=== PATIENT | male | born 1940 | race Caucasian/White ===

== ENCOUNTER 2023-01-23 14:18 | Emergency (ER) | payer MEDICARE ==
[~2023-01-23] VITALS: Ht 177 cm; Wt 99.7 kg
[~2023-01-23 14:18] MED LIST: ACHD5005 PO; AMLO10TA82 PO; AMLO5TAB2 PO; ASP325T PO; ATOR40TA70 PO; BENZ200C51 PO; BUDE10.22 IH; CEFD300C3 PO; CHLO500T4 PO; CLPD75T PO; CPR500T PO; CYAN250010 PO; DOCU-143 PO; E400C PO; ENAL10TA PO; FISH1CAP15 PO; FNST5T PO; GUAI600T PO; HYDR-91 PO; IPRA3AMP31 IH; ISOS30TA82 PO; LISI40TA9 PO; METH4TAB PO; METO-333 PO; METO50TA7; MONT-40 PO; MTP25TSR PO; MULT-608 PO; NAPR-915 PO; NITR0.4T12 SL; NITR0.4T39 SL; NITR100C3 PO; OMEG1CAP51 PO; OMG1KC PO; OXYC1TAB11 PO; OXYC1TAB16 PO; PRAV40TA PO; PRAV80TA2 PO; PRD20T PO; RANO10003 PO; RANO500T3 PO; TIZA-186 PO; TIZA4CAP PO; TMSL.4C PO; VITA1CAP59 PO; Vitamin B-6 PO; [UNRECOGNIZED DRUG - CODE] PO
--- NOTE | 2023-01-23 14:21 | ED Chest Pain ---
General Chief Complaint: Chest Pain Stated Complaint: CHEST PAINS History of Present Illness Date Seen by Provider: Jan 23, 2023 Time Seen by Provider: 14:20 Initial Comments 82-year-old male brought in with some chest discomfort. 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 Reports that as long as he is not doing any work or resting his improved. That is little bit worse with the movement and activity. Patient denies any nausea, vomiting, diaphoresis, shortness of breath or other systemic complaints. P atient went to primary care office and had a negative EKG and evaluation at that time was sent to the ER for further evaluation. Allergies and Home Medications Allergies Coded Allergies: No Known Drug Allergies (Unverified , 01/23/23) Patient Home Medication List Home Medication List Reviewed: Yes Review of Systems Review of Systems Constitutional: no symptoms reported EENTM: No Symptoms Reported Respiratory: Denies Cough, Denies Shortness of Air, Denies SOA at Rest Cardiovascular: See HPI, Chest Pain Gastrointestinal: No Symptoms Reported Genitourinary: No Symptoms Reported Musculoskeletal: no symptoms reported Skin: no symptoms reported Psychiatric/Neurological: No Symptoms Reported Physical Exam Vital Signs Vital Signs - First Documented 01/23/23 14:18 Temp 36.8 Pulse 83 Resp 18 B/P (MAP) 169/84 (112) Pulse Ox 95 O2 Delivery Room Air Capillary Refill : Height, Weight, BMI Height: '" Weight: lbs. oz. kg; BMI Method: General Appearance: No Apparent Distress, WD/WN Respiratory: Lungs Clear, Normal Breath Sounds, No Accessory Muscle Use Cardiovascular: Regular Rate, Rhythm, No Edema, No Gallop Gastrointestinal: Non Tender, Soft Neurologic/Psychiatric: Alert, Oriented x3, No Motor/Sensory Deficits, Normal Mood/Affect, electrophysiology nurse practitioner II-XII Norm as Tested Skin: Normal Color, Warm/Dry Progress/Results/Core Measures Results/Orders Lab Results Laboratory Tests Test 01/23/23 14:23 01/23/23 16:22 Range/Units White Blood Count 4.4 4.3-11.0 10^3/uL Red Blood Count 3.99 L 4.30-5.52 10^6/uL Hemoglobin 12.6 L 13.3-17.7 g/dL Hematocrit 37 L 40-54 % Mean Corpuscular Volume 92 80-99 fL Mean Corpuscular Hemoglobin 32 25-34 pg Mean Corpuscular Hemoglobin Concent 35 32-36 g/dL Red Cell Distribution Width 13.2 10.0-14.5 % Platelet Count 126 L 130-400 10^3/uL Mean Platelet Volume 11.6 9.0-12.2 fL Immature Granulocyte % (Auto) 0 % Neutrophils (%) (Auto) 62 42-75 % Lymphocytes (%) (Auto) 18 12-44 % Monocytes (%) (Auto) 12 0-12 % Eosinophils (%) (Auto) 7 0-10 % Basophils (%) (Auto) 1 0-10 % Neutrophils # (Auto) 2.7 1.8-7.8 10^3/uL Lymphocytes # (Auto) 0.8 L 1.0-4.0 10^3/uL Monocytes # (Auto) 0.5 0.0-1.0 10^3/uL Eosinophils # (Auto) 0.3 0.0-0.3 10^3/uL Basophils # (Auto) 0.1 0.0-0.1 10^3/uL Immature Granulocyte # (Auto) 0.0 0.0-0.1 10^3/uL Percent Immature Platelet Fraction 4.9 0.0-7.6 % Prothrombin Time 13.2 12.2-14.7 SEC INR Comment 1.0 0.8-1.4 Activated Partial Thromboplast Time 23 L 24-35 SEC Sodium Level 141 135-145 MMOL/L Potassium Level 4.2 3.6-5.0 MMOL/L Chloride Level 110 H 98-107 MMOL/L Carbon Dioxide Level 22 21-32 MMOL/L Anion Gap 9 5-14 MMOL/L Blood Urea Nitrogen 20 H 7-18 MG/DL Creatinine 0.82 0.60-1.30 MG/DL Estimat Glomerular Filtration Rate 88 BUN/Creatinine Ratio 24 Glucose Level 107 H 70-105 MG/DL Calcium Level 9.5 8.5-10.1 MG/DL Corrected Calcium 9.7 8.5-10.1 MG/DL Magnesium Level 2.1 1.6-2.4 MG/DL Total Bilirubin 0.4 0.1-1.0 MG/DL Aspartate Amino Transf (AST/SGOT) 20 5-34 U/L Alanine Aminotransferase (ALT/SGPT) 24 0-55 U/L Alkaline Phosphatase 61 40-136 U/L Myoglobin 47.1 10.0-92.0 NG/ML Troponin I < 0.028 < 0.028 <0.028 NG/ML Total Protein 6.3 L 6.4-8.2 GM/DL Albumin 3.8 3.2-4.5 GM/DL Smear Scan YES My Orders Orders - YOUNG,MADELYN L DO Cbc With Automated Diff (01/23/23 14:21) Magnesium (01/23/23 14:21) Chest 1 View, Ap/Pa Only (01/23/23 14:21) Ekg Tracing (01/23/23 14:21) Comprehensive Metabolic Panel (01/23/23 14:21) Myoglobin Serum (01/23/23 14:21) Protime With Inr (01/23/23 14:21) Partial Thromboplastin Time (01/23/23 14:21) Monitor-Rhythm Ecg Trace Only (01/23/23 14:21) Ed Iv/Invasive Line Start (01/23/23 14:21) Troponin I [place] (01/23/23 14:21) Troponin I [place] (01/23/23 16:14) Vital Signs/I&O 01/23/23 01/23/23 14:18 17:09 Temp 36.8 Pulse 83 56 Resp 18 17 B/P (MAP) 169/84 (112) 134/70 Pulse Ox 95 95 O2 Delivery Room Air Initial ECG Impression Date: Jan 23, 2023 Initial ECG Impression Time: 14:25 Initial ECG Rate: 67 Initial ECG Rhythm: Normal Sinus Initial ECG Intervals: Normal Initial ECG Impression: Normal Comment Patient's diagnostic studies were ordered reviewed and interpreted by me. Patient had 2 negative troponins, negative EKG with normal sinus rhythm, heart rate 67, [place] [address] changes or elevation. Patient's x-ray was ordered reviewed by me with an initial interpretation by me with final interpretation per radiology report. Patient with benign physical exam. Patient was pain free throughout his ER stay. Patient was off for observation with repeat troponin and possible stress test however he declined. Patient sees Dr. Henderson and will contact him next week about outpatient follow-up. Patient was stable and discharged home. Diagnostic Imaging Diagonstic Imaging: Xray Plain Films/CT/US/NM/MRI: chest Comments Date of Exam:01/23/23 CHEST 1 VIEW, AP/PA ONLY EXAMINATION: Chest radiograph, portable AP view. DATE: 01/23/2023 2:39 PM INDICATION: 82-year-old male, chest pain. COMPARISON: October 08, 2021. FINDINGS: Heart size and mediastinal contours are unchanged. There is no identified pneumothorax. There is no large pleural effusion. There is no identified focal airspace consolidation. There are technical limitations of the study relating to patient body habitus and difficulties with exposure. IMPRESSION: 1. No identified acute cardiopulmonary abnormality. Reviewed: Reviewed by Me, Reviewed/Discussed Departure Impression Primary Impression: Nonspecific chest pain Disposition: HOME, SELF-CARE Condition: Stable Departure-Patient Inst. Referrals: NO,LOCAL PHYSICIAN (PCP/Family) Primary Care Physician Patient Instructions: Chest Pain, Adult ED Add. Discharge Instructions: Please call Dr. Henderson's office next week to arrange for an outpatient follow-up. Please return to the ER if your pain becomes worse, more frequent or with any other concerns. All discharge instructions reviewed with patient and/or family. Voiced understanding. MADELYN YOUNG DO Jan 23, 2023 14:20
[2023-01-23 14:28] LABS: EOSINOPHILS # (AUTO) 0.3 10^3/uL (0.0-0.3); MEAN CORPUSCULAR VOLUME 92 fL (80-99)
[2023-01-23 14:30] LABS: BASOPHILS # (AUTO) 0.1 10^3/uL (0.0-0.1); BASOPHILS % (AUTO) 1 % (0-10); EOSINOPHILS % (AUTO) 7 % (0-10); HEMATOCRIT 37 % (40-54); HEMOGLOBIN 12.6 g/dL (13.3-17.7); LYMPHOCYTES # (AUTO) 0.8 10^3/uL (1.0-4.0); LYMPHOCYTES % (AUTO) 18 % (12-44); MEAN CORPUSCULAR HEMOGLOBIN 32 pg (25-34); MEAN CORPUSCULAR HGB CONC 35 g/dL (32-36); MEAN PLATELET VOLUME 11.6 fL (9.0-12.2); MONOCYTES # (AUTO) 0.5 10^3/uL (0.0-1.0); MONOCYTES % (AUTO) 12 % (0-12); NEUTROPHILS # (AUTO) 2.7 10^3/uL (1.8-7.8); NEUTROPHILS % (AUTO) 62 % (42-75); PLATELET COUNT 126 10^3/uL (130-400); WHITE BLOOD COUNT 4.4 10^3/uL (4.3-11.0)
[2023-01-23 14:40] LABS: ALBUMIN 3.8 GM/DL (3.2-4.5); POTASSIUM 4.2 MMOL/L (3.6-5.0)
[2023-01-23 14:41] LABS: CALCIUM 9.5 MG/DL (8.5-10.1); PROTHROMBIN TIME PATIENT 13.2 SEC (12.2-14.7)
[2023-01-23 14:42] LABS: SMEAR SCAN COMMENT YES; TOTAL PROTEIN 6.3 GM/DL (6.4-8.2)
[2023-01-23 14:44] LABS: BILIRUBIN,TOTAL 0.4 MG/DL (0.1-1.0)
[2023-01-23 14:46] LABS: CREATININE SERUM 0.82 MG/DL (0.60-1.30)
[2023-01-23 14:49] LABS: MAGNESIUM 2.1 MG/DL (1.6-2.4)
--- NOTE | 2023-01-23 14:58 | Diagnostic Imaging Report ---
EXAMINATION: Chest radiograph, portable AP view. DATE: 01/23/2023 2:39 PM INDICATION: 82-year-old male, chest pain. COMPARISON: October 08, 2021. FINDINGS: Heart size and mediastinal contours are unchanged. There is no identified pneumothorax. There is no large pleural effusion. There is no identified focal airspace consolidation. There are technical limitations of the study relating to patient body habitus and difficulties with exposure. IMPRESSION: 1. No identified acute cardiopulmonary abnormality. Dictated by: Dictated on workstation # [id number]
[2023-01-23 17:09] VITALS: BP 134/70
== END 2023-01-23 17:09 | disposition home or self-care (01) ==
LOC: EDUNIT# 14:18 → ER 14:20
DX: R07.89 Other chest pain (principal)
CPT/HCPCS: 36415; 71045; 80053; 83735; 83874; 84484; 85025; 85610; 85730; 93005; 93041

== ENCOUNTER → 2023-03-03 | Outpatient (CLI) | payer MEDICARE | LOC: CARD 10:23 | PROVIDERS: ATTEND Internal Medicine Cardiovascular Disease | DX: I11.9 Hypertensive heart disease without heart failure (principal) | CPT/HCPCS: 93306 ==

== ENCOUNTER → 2023-04-08 | Outpatient (CLI) | payer MEDICARE ==
[~2023-04-08] MED LIST changes: +CATHETER FLUSH 10 ML SYR IVP PRN; +REGADENOSON 0.4 MG/5 ML SYR (LEXISCAN) IV ONE
[2023-04-08 09:28] VITALS: BP 137/75
[2023-04-08 09:36] VITALS: BP 138/64
--- NOTE | 2023-04-08 13:09 | Cardiology Stress Test Report ---
Stress Test Report Date of Procedure/Referring: Date of Procedure: Apr 08, 2023 PCP Shirley Marcial DO Admitting Physician Admitting Physician: Attending Physician: Gissell Downs MD Indications: CP Baseline Heart Rate: 59 Baseline Blood Pressure: Blood Pressure Systolic: 138 Blood Pressure Diastolic: 64 Baseline Vitals Vital Signs Date Time Temp Pulse Resp B/P (MAP) Pulse Ox O2 Delivery O2 Flow Rate FiO2 04/08/23 09:28 55 137/75 (95) Baseline EKG: Baseline EKG: NSR Summary After explaining the procedure to the patient, he signed a consent and then brought to the stress nuclear laboratory. Patient received 0.4 mg Lexiscan for stress test, ECG, heart rate and blood pressure were monitored continuously. Resting and stress dose of radio tracer were injected, imaging was acquired and reviewed in short axis, horizontal long axis and vertical long axis views. TID: 1.16 SSS: 4 SDS: 2 EF: 60 1. Patient tolerated Lexiscan well 2. Diaphragmatic attenuation with fixed defect involving the basal to mid inf erior wall, mild reversible ischemia involving the mid to apical anterolateral wall. Normal left ventricular size, ejection fraction 60% Copy Copies To 1: SHIRLEY MARCIAL DO Copies To 2: [facility] [place] GISSELL DOWNS MD Apr 08, 2023 13:09
== END ==
LOC: CARD 07:54
PROVIDERS: ATTEND Internal Medicine Cardiovascular Disease
DX: I10 Essential (primary) hypertension (principal); I25.10 Atherosclerotic heart disease of native coronary artery without angina pectoris
CPT/HCPCS: 78452; 93017; A9502

== ENCOUNTER → 2023-04-17 | Day surgery (SDC) | payer MEDICARE ==
[2023-04-17] VITALS (12 sets, daily range): BP systolic 127–158; BP diastolic 67–119
[~2023-04-17] VITALS: Ht 177.8 cm; Wt 98.0 kg
[~2023-04-17] MED LIST changes: +ASPIRIN E.C. 81 MG (ECOTRIN) TAB PO SCH; -CATHETER FLUSH 10 ML SYR IVP PRN; +FURO20TA4 PO; +GUAI400T86 PO; +HEParin (CATH LAB) 2,000 ML IV ONE; +HEParin 1000 UNIT/ML (10ML VIAL) FOR BOLUS ONE; +LIDOCAINE 1% INJ 20 ML VIAL ONE; +MIDAZOLAM 5 MG/5 ML (VERSED) VIAL ONE; +NITRO DRIP 25000 MCG/D5W 250 ML IV ONE; +NS IV 1000 ML 1,000 ML IV SCH; +NS IV 1000 ML 1,000 ML ONE; +PATIENT MAY USE OWN MEDS, ALL PO SCH; +POTA-177 PO; -REGADENOSON 0.4 MG/5 ML SYR (LEXISCAN) IV ONE; +TICA90TA PO; +TICAGRELOR 90 MG TABLET (BRILINTA) PO SCH; +VERAPAMIL 5 MG/2 ML (CALAN) VIAL IV ONE; +fentaNYL INJ 100 MCG/2 ML AMP ONE
[2023-04-17 07:21] LABS: HEMATOCRIT 41 % (40-54); HEMOGLOBIN 13.5 g/dL (13.3-17.7); MEAN CORPUSCULAR HEMOGLOBIN 31 pg (25-34); MEAN CORPUSCULAR HGB CONC 33 g/dL (32-36); MEAN CORPUSCULAR VOLUME 94 fL (80-99); MEAN PLATELET VOLUME 11.4 fL (9.0-12.2); PLATELET COUNT 167 10^3/uL (130-400); WHITE BLOOD COUNT 5.1 10^3/uL (4.3-11.0)
[2023-04-17 07:32] LABS: PROTHROMBIN TIME PATIENT 13.3 SEC (12.2-14.7)
[2023-04-17 07:36] LABS: ALBUMIN 4.2 GM/DL (3.2-4.5); POTASSIUM 3.9 MMOL/L (3.6-5.0)
[2023-04-17 07:37] LABS: CALCIUM 9.4 MG/DL (8.5-10.1)
[2023-04-17 07:39] LABS: TOTAL PROTEIN 6.8 GM/DL (6.4-8.2)
[2023-04-17 07:40] LABS: BILIRUBIN,TOTAL 0.9 MG/DL (0.1-1.0)
[2023-04-17 07:42] LABS: CREATININE SERUM 0.86 MG/DL (0.60-1.30)
--- NOTE | 2023-04-17 08:09 | Diagnostic Imaging Report ---
INDICATION: Abnormal stress test. COMPARISON: 01/23/2023. FINDINGS: There are chronic pulmonary interstitial changes and there is stable flattening of the diaphragms. Heart size is stable. There are no current findings of edema or failure. There is no effusion. There is no evidence of airspace consolidation or pneumonia. There is no pneumothorax. IMPRESSION: Stable chest with stable pulmonary interstitial changes and mild hyperinflation with air trapping. No superimposed pneumonia or edema demonstrated. Dictated by: Dictated on workstation # [id number]
--- NOTE | 2023-04-17 10:36 | Coronary Angiography Report ---
Coronary Angiography Report DATE OF PROCEDURE: 04/17/23 INDICATION: Chest discomfort, shortness of breath, abnormal nuclear stress test PREOPERATIVE DIAGNOSIS: Chest discomfort, shortness of breath, abnormal nuclear stress test POSTOPERATIVE DIAGNOSIS: Severe two-vessel calcified coronary artery disease. HISTORY: This is a 82-year-old gentleman who had previous PCI to the obtuse marginal artery in 2008 with drug-eluting stent. He presented to Dr. Henderson's office with shortness of breath and mild chest discomfort. Abnormal nuclear stress test. Therefore, the patient was scheduled for coronary angiography. PROCEDURES PERFORMED: 1.Coronary angiography. 2.Left heart catheterization. 3. IFR to the LAD. COMPLICATIONS: None. SPECIMENS: None. ESTIMATED BLOOD LOSS: 10 mL ANESTHESIA: Conscious sedation ANTICOAGULATION: IV heparin CONTRAST: 113 ml FLUOROSCOPY: 9.1 minutes FLOUROSCOPY DOSE: 1119 mgy. PROCEDURE DETAILS: The patient is a 82 male and was brought to the catheterization laboratory technician after informed consent was taken. All the risks and complications were explained in detail; this included the risk of bleeding, vascular damage, stroke, [place] and even . The patient was draped and prepped in the usual sterile fashion. Access was gained in the right radial artery with a 6 American sheath. Coronary angiography and left heart catheterization was performed with the [place] catheter. FINDINGS: 1.Left main: Distal left main calcified disease. Stenosis severity 40%. 2.LAD: Calcified disease in the ostial/proximal LAD. Stenosis severity 80%. 3.Left circumflex artery: Patent stent in the OM artery. No other disease n oted. 4.RCA: Heavily calcified artery. Subtotal calcified occlusion in the mid RCA. Stenosis severity 99%. [id number] collaterals. 5.Left heart catheterization: Aortic pressure 119/60 mmHg. LV pressure 120/14 mmHg. LVEDP 18 mmHg. No gradient across the aortic valve Recommendations: IFR to the LAD is recommended. IFR details: EBU 3.5 guide catheter. iFR guidewire. Heparin 8000 international units. ACT 220 seconds. The lesion was crossed with a IFR. IFR reading was 0.84 which is severe. The wire was taken out. Post angiogram did not reveal any complication. Patient tolerated procedure well did not have any complication. CONCLUSIONS: Severe ostial LAD calcified stenosis. Severe subtotal calcified stenosis of the mid RCA. Patient is already on aspirin. We will start Brilinta. Patient will see MAYELA Rendon on Thursday morning to set up a referral with Dr. Mariano Diaz for consideration of high risk PCI versus CABG. This was discussed at length with the family. Amaya Lozano MD, FACP, FACC, [facility] Interventional Cardiology Caroline LOZANO MD Apr 17, 2023 10:36
--- NOTE | 2023-04-17 10:36 | Cardiac Procedure Note-CS/ASA ---
Pre-Procedure Note Pre-Op Procedure Note Date H&P Reviewed: Apr 17, 2023 Time H&P Reviewed: 09:10 History & Physical: H&P Reviewed, Patient Examed, No changes noted Pre-Operative Diagnosis: chest discomfort, abn nucl stress test Moderate Sedation PreProcedure Time 09:10 ASA Score 3 Airway Lungs Heart ASA score ASA 1: a normal healthy patient ASA 2: a patient with a mild systemic disease (mid diabetes, controlled hypertension, obesity ASA 3: a patient with a severe systemic disease that limits activity (angina, COPD, prior Myocardial infarction) ASA 4: a patient with an incapacitating disease that is a constant threat to life (CHF, renal failure) ASA 5: a moribund patient not expected to survive 24 hrs. (ruptured aneurysm) ASA 6: a declared brain- patient whose organs are being harvested. For emergent operations, add the letter E after the classification Mallampati Classification Grade 1 Sedation Plan Analgesia, Amnesia, Plan communicated to team members, Discussed options with patient/fam, Discussed risks with patient/fam The patient is an appropriate candidate to undergo the planned procedure, sedation, and anesthesia. The patient immediately re-assessed prior to indication. Caroline MCKINNEY MD Apr 17, 2023 10:36
--- NOTE | 2023-04-17 10:40 | Discharge Inst-Post CATH ---
Discharge Inst-CATH/EP Problems Reviewed?: Yes Final Diagnosis severe two vessel CAD Post Cardiac Cath/EP D/C Inst Follow Up/Plan Follow up with [facility]/Dr Henderson early next week. <b>CARDIAC CATH/EP PROCEDURE DISCHARGE INSTRUCTIONS</b> ACTIVITY * Go Home directly and rest. * Limit activity of the leg (or wrist if it was used) for 7 days including aerobics, swimming, jogging, bicycling, etc. * Restrict stair-climbing for 7 days if possible, if not, climb up with your non-cath leg, then bring together on the same step. * Avoid lifting, pushing, pulling or excessive movement of the affected extremity for 7 days. * Customary sexual activity may be resumed after 2 days-use caution not to use a position that strains or causes pain to the affected extremity. * No driving for 24 hours. * NO SMOKING. * Avoid straining for bowel movements for 7 days. * Gentle walking on level ground is allowed. * Returning to work will depend on the type of procedure and the results. Your doctor will discuss this with you. CALL YOUR DOCTOR FOR ANY OF THE FOLLOWING: *If bleeding from the puncture site occurs- Apply gentle pressure to site with clean cloth and call your doctor or EMS. * If a knot or lump forms under the skin, increases in size, or causes pain. * If bruising appears to be worsening or moving further down your leg instead of disappearing. * Temperature above 101 F. CARE OF YOUR GROIN INCISION; * Bruising or purple discoloration of the skin near the puncture site is common. * You may shower only, no bathtub bathing for 5 days. Be careful to avoid slipping as your leg may feel stiff. * If a closure device was used on your femoral artery, please see the attached guide regarding care of the device and your leg. * Leave dressing on FOR 24 hours. CARE OF YOUR WRIST INCISION; * Bruising or purple discoloration of the skin near the puncture site is common. * You may shower. * DO NOT submerge wrist. * Leave dressing on FOR 24 hours. Caroline MCKINNEY MD Apr 17, 2023 10:40
== END ==
LOC: CATH 06:48
PROVIDERS: ATTEND Internal Medicine Cardiovascular Disease
DX: I25.10 Atherosclerotic heart disease of native coronary artery without angina pectoris (principal); I10 Essential (primary) hypertension; I65.23 Occlusion and stenosis of bilateral carotid arteries; I73.9 Peripheral vascular disease, unspecified; I49.5 Sick sinus syndrome; R94.39 Abnormal result of other cardiovascular function study; R60.0 Localized edema; N40.0 Benign prostatic hyperplasia without lower urinary tract symptoms; M54.9 Dorsalgia, unspecified; E78.2 Mixed hyperlipidemia; Z79.82 Long term (current) use of aspirin; Z95.5 Presence of coronary angioplasty implant and graft
CPT/HCPCS: 71045; 80053; 80061; 85027; 85347; 85610; 85730; 87081; 93005; 93458; 93571; C1769 ×2; C1887; C1894; 36415

== ENCOUNTER 2023-09-20 13:44 | Observation (INO) | payer MEDICARE ==
[~2023-09-20] VITALS: Ht 177.8 cm; Wt 95.9 kg
[~2023-09-20 13:44] MED LIST changes: -ASPIRIN E.C. 81 MG (ECOTRIN) TAB PO SCH; -HEParin (CATH LAB) 2,000 ML IV ONE; -HEParin 1000 UNIT/ML (10ML VIAL) FOR BOLUS ONE; -LIDOCAINE 1% INJ 20 ML VIAL ONE; -MIDAZOLAM 5 MG/5 ML (VERSED) VIAL ONE; -NITRO DRIP 25000 MCG/D5W 250 ML IV ONE; -NS IV 1000 ML 1,000 ML IV SCH; -NS IV 1000 ML 1,000 ML ONE; -PATIENT MAY USE OWN MEDS, ALL PO SCH; -TICAGRELOR 90 MG TABLET (BRILINTA) PO SCH; -VERAPAMIL 5 MG/2 ML (CALAN) VIAL IV ONE; -fentaNYL INJ 100 MCG/2 ML AMP ONE
[2023-09-20 13:59] LABS: BASOPHILS # (AUTO) 0.1 10^3/uL (0.0-0.1); BASOPHILS % (AUTO) 1 % (0-10); EOSINOPHILS # (AUTO) 0.2 10^3/uL (0.0-0.3); EOSINOPHILS % (AUTO) 3 % (0-10); HEMATOCRIT 42 % (40-54); LYMPHOCYTES # (AUTO) 0.7 10^3/uL (1.0-4.0); LYMPHOCYTES % (AUTO) 9 % (12-44); MEAN CORPUSCULAR HEMOGLOBIN 31 pg (25-34); MEAN CORPUSCULAR HGB CONC 33 g/dL (32-36); MEAN CORPUSCULAR VOLUME 94 fL (80-99); MEAN PLATELET VOLUME 11.3 fL (9.0-12.2); MONOCYTES # (AUTO) 0.6 10^3/uL (0.0-1.0); MONOCYTES % (AUTO) 9 % (0-12); NEUTROPHILS # (AUTO) 5.9 10^3/uL (1.8-7.8); NEUTROPHILS % (AUTO) 78 % (42-75); PLATELET COUNT 176 10^3/uL (130-400); WHITE BLOOD COUNT 7.5 10^3/uL (4.3-11.0)
[2023-09-20] MEDS ORDERED: ASPIRIN 81 MG CHEWABLE TABLET PO ONE (14:00)
--- NOTE | 2023-09-20 14:00 | ED Cardiac General ---
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 Chest pain started 2 hours ago. Patient states he was fixing a door at the time. [place] this pressure across his chest. He states pain did intensify but did improve right before arrival. He had associated shortness of breath. Rates pain 8 out of 10. Was seen at [facility] was sent to the ED for further evaluation. Patient has a history of coronary artery disease, hypertension, dyslipidemia does report some lower leg swelling but no increased swelling at this time. He did have some shortness of breath at the time of the chest pain. He is currently asymptomatic. Does take aspirin daily. Denies any cough, runny nose, sore throat, headache, dizziness, visual changes. Similar type pain in the past. Was transferred to [facility] in March secondary to abnormal stress test. History of a drug-eluting stent. Patient denies of any fever, chills, bodies, abdominal pain. States he did feel nauseous when the chest pain did occur. [place] like he had to burp. Allergies and Home Medications Allergies Coded Allergies: No Known Drug Allergies (Unverified , 01/23/23) Patient Home Medication List Home Medication List Reviewed: Yes Amlodipine Besylate (Norvasc Tablet) 10 Mg Tablet, 10 MG PO DAILY, (Reported) Entered as Reported by: DEMAR KAUR on 03/17/13 0328 Atorvastatin Calcium (Atorvastatin Calcium) 40 Mg Tablet, 40 MG PO HS, (Reported) Entered as Reported by: LENA PRITCHETT on 05/01/22 1500 Budesonide/Formoterol Fumarate (Symbicort 80-4.5 Mcg Inhaler) 80 Mcg-4.5 Mcg/Actuation Hfa.aer.ad, 2 PUFF IH BID, (Reported) Entered as Reported by: LENA PRITCHETT on 05/01/22 1500 Docusate Sodium (Colace) 100 Mg Capsule, 100 MG PO DAILY, (Reported) Entered as Reported by: LENA PRITCHETT on 05/01/22 1500 Furosemide (Furosemide) 20 Mg Tablet, 20 MG PO DAILY PRN for EDEMA, (Reported) Entered as Reported by: UCHE RIZVI on 04/17/23 07 Guaifenesin (Guaifenesin) 400 Mg Tablet, 400 MG PO BID PRN for CONGESTION, (Reported) Entered as Reported by: UCHE RIZVI on 04/17/23 07 Ipratropium/Albuterol Sulfate (Iprat-Albut 0.5-3(2.5) mg/3 ml) 0.5 Mg-3 Mg (2.5 Mg Base)/3 Ml Ampul.neb, 3 ML IH Q4H PRN for SHORTNESS OF BREATH Prescribed by: Wendie Varner on 07/10/22 1457 Isosorbide Mononitrate (Isosorbide Mononitrate ER) 30 Mg Tab.er.24h, 30 MG PO DAILY, (Reported) Entered as Reported by: LENA PRITCHETT on 05/01/22 1500 Lisinopril (Lisinopril) 40 Mg Tablet, 40 MG PO DAILY, (Reported) Entered as Reported by: LENA PRITCHETT on 05/01/22 1500 Montelukast Sodium (Montelukast Sodium) 10 Mg Tablet, 10 MG PO DAILY, (Reported) Entered as Reported by: LENA PRITCHETT on 05/01/22 1500 Nitroglycerin (Nitroglycerin) 0.4 Mg Tab.subl, 0.4 MG SL UD PRN for CHEST PAIN Prescribed by: GISSELL HENDERSON on 07/03/17 1102 [place]-3/Dha/Epa/Fish Oil (Cvs Fish Oil 1,000 mg Softgel) 300 Mg-1,000 Mg Capsule, 1 EACH PO UD, (Reported) Entered as Reported by: LENA PRITCHETT on 05/01/22 1500 Potassium Chloride (Potassium Chloride) 10 Meq Tab.er.prt, 10 MEQ PO DAILY PRN for WITH FUROSEMIDE, (Reported) Entered as Reported by: UCHE RIZVI on 04/17/23 07 Ticagrelor (Brilinta) 90 Mg Tablet, 90 MG PO BID Prescribed by: Caroline MCKINNEY on 04/17/23 1039 Review of Systems Review of Systems Constitutional: No chills, No diaphoresis, No fever, No malaise, No weakness EENTM: No Double Vision, No Eye Pain Respiratory: Denies Cough, Denies Orthopnea; Shortness of Air Cardiovascular: Chest Pain; Denies Edema, Denies Irregular Heart Rate Gastrointestinal: Denies Abdominal Pain Genitourinary: Denies Burning, Denies Discharge, Denies Drainage, Denies Frequency Musculoskeletal: No back pain, No joint pain Skin: No change in color All Other Systems Reviewed Negative Unless Noted: Yes Past Vamunif-Gnizgc-Lwptai Hx Immunizations Up To Date Tetanus Booster (TDap): Unknown PED Vaccines UTD: Yes First/Initial COVID19 Vaccinat: RECEIVED UNK WHEN Second COVID19 Vaccination [place]: RECEIVED, UNK WHEN Third COVID19 Vaccination Date: RECEIVED UNK WHEN Seasonal Allergies Seasonal Allergies: No Past Medical History Surgery/Hospitalization HX: LUMBAR SPINE SURGERY L4-L5 FUSION WITH HARDWARE 09/30/[address] MARIELA GANDARA 4 STATES IN [place], STENTS Surgeries: Yes (inguinal hernia repair, prostate sx, stents) Abdominal, Cardiac, Coronary Stent, Orthopedic, Transurethral Resection Respiratory: Yes (MILD) Asthma Currently Using CPAP: No Currently Using BIPAP: No Cardiac: Yes (1 heart stent) Coronary Artery Disease, High Cholesterol, Hypertension Neurological: No Reproductive Disorders: No Sexually Transmitted Disease: No Genitourinary: Yes Benign Prostatic Hyperpl, Prostate Problems, Kidney Stones Gastrointestinal: No Musculoskeletal: Yes Degenerate Disk Disease, Arthritis, Chronic Back Pain Endocrine: No HEENT: Yes (GLASSES) Loss of Vision: Denies Hearing Impairment: Hard of Hearing Cancer: Yes Prostate What Type of Treatment Did You: Surgical Intervention Psychosocial: No Integumentary: No Blood Disorders: No Family Medical History Congenital disease 19 FATHER Diabetes mellitus 19 MOTHER Neoplasm 19 MOTHER (maybe colon cancer) G8 BROTHER (lung cancer) No Pertinent Family Hx Physical Exam Vital Signs Vital Signs - First Documented 09/20/23 13:47 Temp 36.8 Pulse 67 Resp 22 B/P (MAP) 173/101 (125) Pulse Ox 96 O2 Delivery Room Air Capillary Refill : Less Than 3 Seconds Height, Weight, BMI Height: 5'10.00" Weight: 201lbs. 0.0oz. 91.723756vn; 30.00 BMI Method:Stated General Appearance: No Apparent Distress, WD/WN HEENT: PERRL/EOMI, TMs Normal, Normal ENT Inspection, Pharynx Normal Neck: Full Range of Motion, Normal Inspection, Non Tender, Supple Respiratory: Chest Non Tender, Lungs Clear, Normal Breath Sounds, No Accessory Muscle Use, No Respiratory Distress Cardiovascular: Regular Rate, Rhythm, No Edema, No Gallop, No JVD Gastrointestinal: Normal Bowel Sounds, No Organomegaly, No Pulsatile Mass, Non Tender Extremity: Normal Capillary Refill, Normal Inspection, Non Tender Neurologic/Psychiatric: Alert, Oriented x3, No Motor/Sensory Deficits, Normal Mood/Affect, talent sourcer II-XII Norm as Tested Skin: Normal Color, Warm/Dry Progress/Results/Core Measures Results/Orders Lab Results Laboratory Tests Test 09/20/23 13:50 Range/Units White Blood Count 7.5 4.3-11.0 10^3/uL Red Blood Count 4.50 4.30-5.52 10^6/uL Hemoglobin 14.0 13.3-17.7 g/dL Hematocrit 42 40-54 % Mean Corpuscular Volume 94 80-99 fL Mean Corpuscular Hemoglobin 31 25-34 pg Mean Corpuscular Hemoglobin Concent 33 32-36 g/dL Red Cell Distribution Width 13.4 10.0-14.5 % Platelet Count 176 130-400 10^3/uL Mean Platelet Volume 11.3 9.0-12.2 fL Immature Granulocyte % (Auto) 0 % Neutrophils (%) (Auto) 78 H 42-75 % Lymphocytes (%) (Auto) 9 L 12-44 % Monocytes (%) (Auto) 9 0-12 % Eosinophils (%) (Auto) 3 0-10 % Basophils (%) (Auto) 1 0-10 % Neutrophils # (Auto) 5.9 1.8-7.8 10^3/uL Lymphocytes # (Auto) 0.7 L 1.0-4.0 10^3/uL Monocytes # (Auto) 0.6 0.0-1.0 10^3/uL Eosinophils # (Auto) 0.2 0.0-0.3 10^3/uL Basophils # (Auto) 0.1 0.0-0.1 10^3/uL Immature Granulocyte # (Auto) 0.0 0.0-0.1 10^3/uL Prothrombin Time 14.1 12.2-14.7 SEC INR Comment 1.1 0.8-1.4 Activated Partial Thromboplast Time 28 24-35 SEC Sodium Level 140 135-145 MMOL/L Potassium Level 4.1 3.6-5.0 MMOL/L Chloride Level 106 98-107 MMOL/L Carbon Dioxide Level 24 21-32 MMOL/L Anion Gap 10 5-14 MMOL/L Blood Urea Nitrogen 17 7-18 MG/DL Creatinine 0.87 0.60-1.30 MG/DL Estimat Glomerular Filtration Rate 86 BUN/Creatinine Ratio 20 Glucose Level 108 H 70-105 MG/DL Calcium Level 9.6 8.5-10.1 MG/DL Corrected Calcium 9.5 8.5-10.1 MG/DL Magnesium Level 2.2 1.6-2.4 MG/DL Total Bilirubin 0.8 0.1-1.0 MG/DL Aspartate Amino Transf (AST/SGOT) 23 5-34 U/L Alanine Aminotransferase (ALT/SGPT) 25 0-55 U/L Alkaline Phosphatase 86 40-136 U/L Myoglobin 42.0 10.0-92.0 NG/ML Troponin I < 0.028 <0.028 NG/ML B-Type Natriuretic Peptide 82.1 <100.0 PG/ML Total Protein 7.1 6.4-8.2 GM/DL Albumin 4.1 3.2-4.5 GM/DL Lipase 40 8-78 U/L My Orders Orders - KELLEE CRAIG PA Ekg Tracing (09/20/23 13:47) Cbc And Automated Diff (09/20/23 13:52) Magnesium (09/20/23 13:52) Chest 1 View, Ap/Pa Only (09/20/23 13:52) Ekg Tracing (09/20/23 13:52) Comprehensive Metabolic Panel (09/20/23 13:52) Myoglobin Serum (09/20/23 13:52) Protime With Inr (09/20/23 13:52) Partial Thromboplastin Time (09/20/23 13:52) O2 (09/20/23 13:52) Monitor-Rhythm Ecg Trace Only (09/20/23 13:52) Lipid Panel (09/21/23 06:00) Ed Iv/Invasive Line Start (09/20/23 13:52) Lipase (09/20/23 13:52) Bnp Cecille (09/20/23 13:52) Troponin I Cecille (09/20/23 13:52) Aspirin Chewable Tablet (Aspirin Chewabl (09/20/23 14:00) Medications Given in ED Current Medications Medications Dose Ordered Sig/Tramaine Route Start Time Stop Time Status Last Admin Dose Admin Aspirin 324 mg ONCE ONCE PO 09/20/23 14:00 09/20/23 14:01 DC 09/20/23 14:03 324 MG Clopidogrel Bisulfate 300 mg ONCE ONCE PO 09/20/23 16:00 09/20/23 16:03 DC 09/20/23 16:15 300 MG Vital Signs/I&O 09/20/23 13:47 Temp 36.8 Pulse 67 Resp 22 B/P (MAP) 173/101 (125) Pulse Ox 96 O2 Delivery Room Air Blood Pressure Mean: 125 Comment Sinus bradycardia, 54 bpm, QRS duration 89 MS, QTc 380 MS. Departure Communication (PCP) Patient is a 83-year-old male with extensive cardiac history presents to ED with episode of a chest pain. This occurred while at home 2 hours before arrival. Patient was putting up a door. Substernal pressure with shortness of breath and nausea at the time of the pain. Patient states he felt like he needed to belch. Patient states chest pain improved right before arrival. Patient was seen here in March had abnormal stress test underwent cardiac cath by Dr. Pond credit reporter who ended up sending patient to [facility] secondary to severe two-vessel coronary artery disease. Family at bedside states patient had a stent placed and refused undergoing bypass surgery at that time. Patient was admitted for a 3-day stay. Not currently on anticoagulants. Since then he has been doing quite well. Follows Dr. Henderson. Cardiac workup was initiated on arrival. Currently asymptomatic. Patient Was slightly hypertensive but did improve without any treatment. EKG showed sinus bradycardia with minimal ST depression at 54 bpm.. Patient did receive a full aspirin. CBC, CMP grossly unremarkable. Normal troponin and BNP. Chest x-ray was unremarkable. He is not tachycardic or hypoxic or febrile. Patient was discussed with Dr. Garcia Sleep Scientist here in the ED. Recommended going to the Case Reviewer at this time. Patient did receive Plavix. Patient is not wanting to undergo bypass at this time. Patient was discussed with Dr. Blanco hospitalist who agreed to accept p atient. Impression Primary Impression: Chest pain Disposition: ADMITTED INPATIENT Condition: Stable Admissions Decision to Admit Reason: Admit from ER (General) Decision to Admit/Date: Sep 20, 2023 Time/Decision to Admit Time: 16:36 Departure-Patient Inst. Referrals: SHIRLEY CRYSTAL DO (PCP/Family) Primary Care Physician KELLEE CRAIG Sep 20, 2023 14:00
[2023-09-20 14:06] LABS: ALBUMIN 4.1 GM/DL (3.2-4.5); CHLORIDE 106 MMOL/L (98-107); POTASSIUM 4.1 MMOL/L (3.6-5.0); SODIUM 140 MMOL/L (135-145)
[2023-09-20 14:08] LABS: CALCIUM 9.6 MG/DL (8.5-10.1); INR 1.1 (0.8-1.4); PROTHROMBIN TIME PATIENT 14.1 SEC (12.2-14.7)
[2023-09-20 14:09] LABS: GLUCOSE 108 MG/DL (70-105); TOTAL PROTEIN 7.1 GM/DL (6.4-8.2)
[2023-09-20 14:10] LABS: BILIRUBIN,TOTAL 0.8 MG/DL (0.1-1.0); CARBON DIOXIDE 24 MMOL/L (21-32)
[2023-09-20 14:12] LABS: ALKALINE PHOSPHATASE 86 U/L (40-136); CREATININE SERUM 0.87 MG/DL (0.60-1.30); GFR ESTIMATED 86
[2023-09-20 14:13] LABS: BUN/CREATININE RATIO 20
[2023-09-20 14:15] LABS: ALANINE AMINOTRANSFERASE 25 U/L (0-55); MAGNESIUM 2.2 MG/DL (1.6-2.4)
[2023-09-20 14:16] LABS: LIPASE 40 U/L (8-78)
--- NOTE | 2023-09-20 14:20 | Diagnostic Imaging Report ---
EXAM: CHEST 1 VIEW, AP/PA ONLY INDICATION: Chest pain. COMPARISON: 04/17/2023. FINDINGS: Normal heart size and central pulmonary vascularity. Lungs are clear. No pleural effusion or pneumothorax. No acute osseous findings. No significant change. IMPRESSION: No acute cardiopulmonary findings. Dictated by: Dictated on workstation # [id number]
[2023-09-20] MEDS ORDERED: CLOPIDOGREL 300 MG TABLET PO ONE (16:00)
[2023-09-20] MEDS ORDERED: fentaNYL INJECTION 100 MCG/2 ML VIAL ONE (16:31)
[2023-09-20] MEDS ORDERED: HEParin 1000 UNIT/ML (10ML VIAL) FOR BOLUS ONE (16:31)
[2023-09-20] MEDS ORDERED: MIDAZOLAM INJ 5 MG/5 ML VIAL ONE (16:31)
[2023-09-20] MEDS ORDERED: LIDOCAINE 1% INJ 20 ML VIAL ONE ×2 (16:31→17:33)
[2023-09-20] MEDS ORDERED: NITRO DRIP 25000 MCG/D5W 250 ML IV ONE (16:32)
[2023-09-20] MEDS ORDERED: NS IV 1000 ML 1,000 ML ONE (16:32)
[2023-09-20] MEDS ORDERED: HEParin (CATH LAB) 2,000 ML IV ONE (16:32)
[2023-09-20] MEDS ORDERED: VERAPAMIL 5 MG/2 ML (CALAN) VIAL IV ONE (16:39)
[2023-09-20 18:35] VITALS: BP 149/78
[2023-09-20] MEDS ORDERED: NS IV 500 ML 500 ML IV PRN (21:00)
[2023-09-20] MEDS: NS IV 1000 ML 1,000 ML IV SCH (21:38)
[2023-09-20 23:31] VITALS: BP 150/75
[2023-09-21 03:13] VITALS: BP 119/70
--- NOTE | 2023-09-21 04:59 | Short Stay Summary-Hospitalist ---
History of Present Illness HPI/Chief Complaint Chief complaint: Unstable angina HPI: This is an 83-year-old male CHC who presented following cardiac catheterization performed by cardiology revealing multivessel disease. Patient was reluctant but agreed to go to [place] for bypass surgery. Source: patient, family Exam Limitations: no limitations Date Seen 09/21/23 Time Seen by a Provider: 09:00 Attending Physician Christopher Marcial DO PCP Admitting Physician: Dilam Blanco DO Attending Physician: Michael Sanchez MD Referring Physician Date of Admission Sep 20, 2023 at 18:38 Home Medications & Allergies Home Medications Reviewed patient Home Medication Reconciliation performed by pharmacy medication reconciliations field installation technician and/or nursing. Patients Allergies have been reviewed. Allergies Allergies Coded Allergies No Known Drug Allergies (Unverified01/23/23) Past Uigxpsh-Drrazz-Iahehh Hx Patient Social History Marrital Status: Employed/Student: retired Tobacco Use?: No Smoking Status: Never a Smoker Use of E-Cig and/or Vaping dev: No Substance use?: No Alcohol Use?: No Pt feels they are or have been: No Immunizations Up To Date Date of Influenza Vaccine: Jul 26, 2021 First/Initial COVID19 Vaccinat: RECEIVED UNK WHEN Second COVID19 Vaccination [place]: RECEIVED, UNK WHEN Tetanus Booster (TDap): Less Than 5 Years PED Vaccines UTD: Yes Date of Pneumonia Vaccine: Oct 26, 2007 Seasonal Allergies Seasonal Allergies: No Current Status Advance Directives: Yes Advance Directive Location: Home Communicates: Verbally Primary Language: Guinean Preferred Spoken Language: Guinean Is interpretation needed?: No Sensory deficits: Vision impairment, Hearing impairment Implanted or Applied Medical D: Orthopedic hardware, Stents Past Medical History Surgeries: Abdominal, Cardiac, Coronary Stent, Orthopedic, Transurethral Resection Asthma Currently Using CPAP: No Currently Using BIPAP: No Coronary Artery Disease, High Cholesterol, Hypertension Sexually Transmitted Disease: No Benign Prostatic Hyperpl, Prostate Problems, Kidney Stones Degenerate Disk Disease, Arthritis, Chronic Back Pain Loss of Vision: Denies Hearing Impairment: Hard of Hearing Prostate What Type of Treatment Did You: Surgical Intervention Blood Disorders: No CAD HTN Dyslipidemia Family Medical History Congenital disease 19 FATHER Diabetes mellitus 19 MOTHER Neoplasm 19 MOTHER (maybe colon cancer) G8 BROTHER (lung cancer) No Pertinent Family Hx Review of Systems Constitutional: see HPI Cardiovascular: chest pain Physical Exam Physical Exam Vital Signs Vital Signs - First Documented 09/20/23 13:47 Temp 36.8 Pulse 67 Resp 22 B/P (MAP) 173/101 (125) Pulse Ox 96 O2 Delivery Room Air Capillary Refill : Less Than 3 Seconds Height, Weight, BMI Height: 5'10.00" Weight: 201lbs. 0.0oz. 91.045825xk; 29.19 BMI Method:Stated General Appearance: No Apparent Distress, WD/WN, Chronically ill HEENT: PERRL/EOMI, TMs Normal, Normal ENT Inspection, Pharynx Normal Neck: Full Range of Motion, Normal Inspection, Non Tender, Supple Respiratory: Chest Non Tender, Lungs Clear, Normal Breath Sounds, No Accessory Muscle Use, No Respiratory Distress Cardiovascular: Regular Rate, Rhythm, No Edema, No Gallop, No JVD Gastrointestinal: Normal Bowel Sounds, No Organomegaly, No Pulsatile Mass, Non Tender Extremity: Normal Capillary Refill, Normal Inspection, Non Tender Neurologic/Psychiatric: Alert, Oriented x3, No Motor/Sensory Deficits, Normal Mood/Affect, regulator tester II-XII Norm as Tested Skin: Normal Color, Warm/Dry Results Results/Procedures Labs Laboratory Tests 09/20/23 13:50 09/21/23 04:25 Patient resulted labs reviewed. Short Stay Diagnosis Discharge Diagnosis-Short Stay Admission Diagnosis Unstable angina with multivessel disease Final Discharge Diagnosis Unstable angina with multivessel disease needing bypass surgery Conclusion Plan Transfer to [place] Clinical Quality Measures AMI/AHF: ASA po Prior to arrival: Yes DILMA BLANCO DO Sep 21, 2023 04:59
[2023-09-21 05:01] LABS: BASOPHILS % (AUTO) 1 % (0-10); EOSINOPHILS # (AUTO) 0.1 10^3/uL (0.0-0.3); EOSINOPHILS % (AUTO) 3 % (0-10); HEMATOCRIT 38 % (40-54); HEMOGLOBIN 12.7 g/dL (13.3-17.7); LYMPHOCYTES # (AUTO) 0.6 10^3/uL (1.0-4.0); LYMPHOCYTES % (AUTO) 13 % (12-44); MEAN CORPUSCULAR HEMOGLOBIN 31 pg (25-34); MEAN CORPUSCULAR HGB CONC 34 g/dL (32-36); MEAN CORPUSCULAR VOLUME 91 fL (80-99); MEAN PLATELET VOLUME 11.5 fL (9.0-12.2); MONOCYTES # (AUTO) 0.5 10^3/uL (0.0-1.0); MONOCYTES % (AUTO) 11 % (0-12); NEUTROPHILS # (AUTO) 3.6 10^3/uL (1.8-7.8); NEUTROPHILS % (AUTO) 73 % (42-75); PLATELET COUNT 150 10^3/uL (130-400); WHITE BLOOD COUNT 4.9 10^3/uL (4.3-11.0)
[2023-09-21 05:36] LABS: CALCIUM 8.7 MG/DL (8.5-10.1); CREATININE SERUM 0.74 MG/DL (0.60-1.30); POTASSIUM 3.9 MMOL/L (3.6-5.0)
[2023-09-21] MEDS ORDERED: POTASSIUM CHLORIDE 20 MEQ TABLET PO SCH (06:00)
[2023-09-21] MEDS ORDERED: MAGNESIUM 1 GM/100 ML IVPB 100 ML IV SCH (06:00)
[2023-09-21] MEDS ORDERED: POTASSIUM CL 10MEQ/50ML IVPB 50 ML IV SCH (06:00)
[2023-09-21 08:00] VITALS: BP 156/72
[2023-09-21] MEDS ORDERED: POTASSIUM CHLORIDE 20 MEQ TABLET PO ONE (08:00)
[2023-09-21] MEDS: NS IV 1000 ML 1,000 ML IV SCH (08:15)
--- NOTE | 2023-09-21 08:16 | Cardiac Cath Report ---
Cardiac Cath Report Physician (s)/Transit Police Officer (s) Physician LILIAN MUHAMMAD MD Transit Police Officer (s) labview programmer nursing staff Pre-Procedure Diagnosis Pre-Procedure Diagnosis: chest discomfort, abn nucl stress test, CAD , unstable angina Post-Procedure Note Procedure Start Date: Sep 20, 2023 Procedure Start Time: 06:45 Name of Procedure: Selecetive Coronary Angiography without LV gram Findings/Procedure Note patient was prepped in sterile fashion and initially femoral access was obtained in left common femoral artery , upon anatomic review of left HYDROLOGIC ENGINEER noted tortuous calcified so femoral access was exchange for right radial access. Local anesthetic was placed and with a fine gauge needle right radial access obtained. Patient had received conscious sedation with versed and fentanyl . 6F radial sheath was placed followed by J wire placement into the ascending aorta and followed by a JL 4 and JR4 diagnostic catheter visualization of coronary anatomy. Coronary angiography revealed in summary : Left main with significant calcified plaque in distal portion with about 50% stenosis Left anterior descending artery : with proximal 80% chronic calcific stenosis but with EMELI 3 flow Left Circumflex: ostial severe stenosis 85% discrete but heavily calcified from dLM plaque extending into ostial LCx, mLCx/dLCx prior stent patent Right coronary artery: prior pRCA stent patent , mRCA focal heavily calcified stenosis with sub total chronic occlusion and minimal L-R collaterals Post angiography 6F sheath was removed from right radial artery and TR band placed with successfull hemostasis Total contrast used 64 CC Procedure was tolerated well Anesthesia Type: Conscious Sedation Estimated blood loss (mL): 0 Contrast Amount: 64 Post-Procedure Diagnosis Post-operative diagnosis: 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
--- NOTE | 2023-09-21 08:22 | Consultation-Cardiology ---
HPI-Cardiology Cardiology Consultation: Date of Consultation 09/21/23 Date of Admission 09/20 Attending Physician Christopher Marcial DO Admitting Physician Admitting Physician: Dilma Blanco DO Attending Physician: Michael Sanchez MD Consulting Physician MICHAEL SANCHEZ MD HPI: Time Seen by a Provider: 07:00 Chief Complaint: chest pain 83 yo male with prior history of CAD with prior PCI 2008 and 2022 , PVD here due to worsening chest pressure for past couple of months with severe chest pain yesterday with minimal exertion . He was noted back in March 2023 with severe CAD and was advised to undergo either complex impella assisted pci vs CABG but at the time patient was reluctant to undergo open heart surgery so issue was left alone and patient was taking his medications with the exception of brillinta . Given his progressive symptoms and lack of DAPT compliance with recent PCI to LAD patient and care team consulted cardiology to consider re eval for PCI stage d if possible vs patient otherwise would agree for CABG if not PCI feasible disease. Stable in ED upon arrival , was loaded with plavix 300 mg and taken to the manufacturing lab technician for evaluation where was found with severe 3VD with dLM involvement and admited overnight for observation and transfer this am to [facility] for CABG evaluation. Review of Systems-Cardiology Review of Systems Respiratory: shortness of breath, SOB with excertion, SOB at rest Cardiovascular: chest pain, lightheadedness, palpitations All Other Systems Reviewed Negative Unless Noted: Yes ENX-[id number]-Radoxd Hx Patient Social History Smoking Status: Never a Smoker 2nd Hand Smoke Exposure: No Alcohol Use?: No Pt feels they are or have been: No Immunizations Up To Date Tetanus Booster (TDap): Unknown Date of Pneumonia Vaccine: Oct 26, 2007 Date of Influenza Vaccine: Jul 26, 2021 Past Medical History PMH As described under Assessment. Family Medical History Family History: Congenital disease 19 FATHER Diabetes mellitus 19 MOTHER Neoplasm 19 MOTHER (maybe colon cancer) G8 BROTHER (lung cancer) Allergies and Home Medications Allergies Coded Allergies: No Known Drug Allergies (Unverified , 01/23/23) Patient Home Medication List Home Medication List Reviewed: Yes Amlodipine Besylate (Norvasc Tablet) 10 Mg Tablet, 10 MG PO DAILY, (Reported) Entered as Reported by: DEMAR KAUR on 03/17/13 0328 Atorvastatin Calcium (Atorvastatin Calcium) 40 Mg Tablet, 40 MG PO HS, (Reported) Entered as Reported by: LENA PRITCHETT on 05/01/221499 Budesonide/Formoterol Fumarate (Symbicort 80-4.5 Mcg Inhaler) 80 Mcg-4.5 Mcg/Act uation Hfa.aer.ad, 2 PUFF IH BID, (Reported) Entered as Reported by: LENA PRITCHETT on 05/01/221499 Docusate Sodium (Colace) 100 Mg Capsule, 100 MG PO DAILY, (Reported) Entered as Reported by: LENA PRITCHETT on 05/01/221499 Furosemide (Furosemide) 20 Mg Tablet, 20 MG PO DAILY PRN for EDEMA, (Reported) Entered as Reported by: UCHE RIZVI on 04/17/23722 Guaifenesin (Guaifenesin) 400 Mg Tablet, 400 MG PO BID PRN for CONGESTION, (Reported) Entered as Reported by: UCHE RIZVI on 04/17/23722 Ipratropium/Albuterol Sulfate (Iprat-Albut 0.5-3(2.5) mg/3 ml) 0.5 Mg-3 Mg (2.5 Mg Base)/3 Ml Ampul.neb, 3 ML IH Q4H PRN for SHORTNESS OF BREATH Prescribed by: Wendie Varner on 07/10/22 1457 Isosorbide Mononitrate (Isosorbide Mononitrate ER) 30 Mg Tab.er.24h, 30 MG PO DAILY, (Reported) Entered as Reported by: LENA PRITCHETT on 05/01/221499 Lisinopril (Lisinopril) 40 Mg Tablet, 40 MG PO DAILY, (Reported) Entered as Reported by: LENA PRITCHETT on 05/01/221499 Montelukast Sodium (Montelukast Sodium) 10 Mg Tablet, 10 MG PO DAILY, (Reported) Entered as Reported by: LENA PRITCHETT on 05/01/221499 Nitroglycerin (Nitroglycerin) 0.4 Mg Tab.subl, 0.4 MG SL UD PRN for CHEST PAIN Prescribed by: GISSELL DOWNS on 07/03/17 1102 [place]-3/Dha/Epa/Fish Oil (Cvs Fish Oil 1,000 mg Softgel) 300 Mg-1,000 Mg Capsule, 1 EACH PO UD, (Reported) Entered as Reported by: LENA PRITCHETT on 05/01/22 1500 Potassium Chloride (Potassium Chloride) 10 Meq Tab.er.prt, 10 MEQ PO DAILY PRN for WITH FUROSEMIDE, (Reported) Entered as Reported by: UCHE RIZVI on 04/17/23 0723 Ticagrelor (Brilinta) 90 Mg Tablet, 90 MG PO BID Prescribed by: Caroline MCKINNEY on 04/17/23 1039 Exam Vital Signs Vital Signs Date Time Temp Pulse Resp B/P (MAP) Pulse Ox O2 Delivery O2 Flow Rate FiO2 09/21/23 03:13 36.5 53 16 119/70 (86) 94 Room Air Physical Exam normocefalic atraumatic neck supple , -ve JVD Good air entry lungs No sig murmurs, rubs, gallops appreciated on cardiac auscultation abdomen soft non tender peripheral pulses decreased but present bilaterally Labs Laboratory Tests Test 09/20/23 13:50 09/21/23 04:25 Range/Units White Blood Count 7.5 4.9 4.3-11.0 10^3/uL Red Blood Count 4.50 4.14 L 4.30-5.52 10^6/uL Hemoglobin 14.0 12.7 L 13.3-17.7 g/dL Hematocrit 42 38 L 40-54 % Mean Corpuscular Volume 94 91 80-99 fL Mean Corpuscular Hemoglobin 31 31 25-34 pg Mean Corpuscular Hemoglobin Concent 33 34 32-36 g/dL Red Cell Distribution Width 13.4 13.4 10.0-14.5 % Platelet Count 176 150 130-400 10^3/uL Mean Platelet Volume 11.3 11.5 9.0-12.2 fL Immature Granulocyte % (Auto) 0 0 % Neutrophils (%) (Auto) 78 H 73 42-75 % Lymphocytes (%) (Auto) 9 L 13 12-44 % Monocytes (%) (Auto) 9 11 0-12 % Eosinophils (%) (Auto) 3 3 0-10 % Basophils (%) (Auto) 1 1 0-10 % Neutrophils # (Auto) 5.9 3.6 1.8-7.8 10^3/uL Lymphocytes # (Auto) 0.7 L 0.6 L 1.0-4.0 10^3/uL Monocytes # (Auto) 0.6 0.5 0.0-1.0 10^3/uL Eosinophils # (Auto) 0.2 0.1 0.0-0.3 10^3/uL Basophils # (Auto) 0.1 0.0 0.0-0.1 10^3/uL Immature Granulocyte # (Auto) 0.0 0.0 0.0-0.1 10^3/uL Prothrombin Time 14.1 12.2-14.7 SEC INR Comment 1.1 0.8-1.4 Activated Partial Thromboplast Time 28 24-35 SEC Sodium Level 140 140 135-145 MMOL/L Potassium Level 4.1 3.9 3.6-5.0 MMOL/L Chloride Level 106 111 H 98-107 MMOL/L Carbon Dioxide Level 24 20 L 21-32 MMOL/L Anion Gap 10 9 5-14 MMOL/L Blood Urea Nitrogen 17 14 7-18 MG/DL Creatinine 0.87 0.74 0.60-1.30 MG/DL Estimat Glomerular Filtration Rate 86 90 BUN/Creatinine Ratio 20 19 Glucose Level 108 H 103 70-105 MG/DL Calcium Level 9.6 8.7 8.5-10.1 MG/DL Corrected Calcium 9.5 8.5-10.1 MG/DL Magnesium Level 2.2 2.0 1.6-2.4 MG/DL Total Bilirubin 0.8 0.1-1.0 MG/DL Aspartate Amino Transf (AST/SGOT) 23 5-34 U/L Alanine Aminotransferase (ALT/SGPT) 25 0-55 U/L Alkaline Phosphatase 86 40-136 U/L Myoglobin 42.0 10.0-92.0 NG/ML Troponin I < 0.028 <0.028 NG/ML B-Type Natriuretic Peptide 82.1 <100.0 PG/ML Total Protein 7.1 6.4-8.2 GM/DL Albumin 4.1 3.2-4.5 GM/DL Lipase 40 8-78 U/L Phosphorus Level 3.0 2.3-4.7 MG/DL Triglycerides Level 71 <150 MG/DL Cholesterol Level 131 < 200 MG/DL LDL Cholesterol Direct 68 1-129 MG/DL VLDL Cholesterol 14 5-40 MG/DL HDL Cholesterol 49 40-60 MG/DL Radiology reviewed ECG Impression ECG Initial ECG Impression Date: Sep 21, 2023 Initial ECG Rhythm: Normal Sinus Initial ECG Impression: Normal, Nonspecific Changes Initial ECG Comparisson: Unchanged Diagnosis/Problems Diagnosis/Problems (1) CAD (coronary artery disease) (2) Angina pectoris, unstable (3) Abnormal stress test A/P-Cardiology Assessment/Admission Diagnosis Unstable angina class III-IV 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 Continue home meds Right radial access from yesterday benign , distal pulses intact. Cath revealed severe triple vessel CAD with LM involvement . Carotid angiography without proximal/ostial sig stenosis noted Plan to transfer for CABG evaluation today and optimize medical rx for CAD and CAD risk factors MICHAEL SANCHEZ MD Sep 21, 2023 08:22
[2023-09-21] MEDS ORDERED: CLOP75TA28 PO (10:13)
[2023-09-21] MEDS ORDERED: CALC600T91 PO (10:13)
[2023-09-21] MEDS ORDERED: LISI10TA25 PO (10:13)
[2023-09-21] MEDS ORDERED: MV-M1TAB2 PO (10:13)
[2023-09-21] MEDS ORDERED: VITA-212 PO (10:13)
[2023-09-21] MEDS ORDERED: CHOL10004 PO (10:13)
[2023-09-21] MEDS ORDERED: GUAI200T4 PO (10:13)
[2023-09-21] MEDS ORDERED: LEUP22.53 IM (10:13)
[2023-09-21] MEDS ORDERED: CYAN-23 PO (10:13)
[2023-09-21] MEDS ORDERED: ASPI-1238 PO (10:15)
--- NOTE | 2023-09-21 10:23 | Cardiology Discharge Summary ---
Discharge Summary Hospital Course Problems Reviewed?: Yes Hospital Course Date of Admission: Sep 20, 2023 at 18:38 Admission Diagnosis : Family Physician/Provider: Christopher Marcial DO Date of Discharge: 09/21/23 Discharge Diagnosis: Chest pain CAD HTN HLP Hospital Course: [ Chest pain, resembling unstable angina Coronary artery disease, History of PTCA and stent done in 2008 using Promus 3.0x18 mm to the obtuse marginal. Cardiac catheterization was done July 02, 2017 revealing patent stent in the first obtuse marginal branch, small vessel disease in the distal circumflex artery, nonobstructive disease. 40-50 percent stenosis in the mid RCA, nonobstructive disease. Torturous LAD with mild nonobstructive disease. Stress test done in March 2023 showing diaphragmatic attenuation with fixed defect at the basal to mid inferior wall with mild reversible ischemia involving the mid to apical anterior lateral wall with ejection fraction 60% Underwent LHC with Dr. Lozano on 04/17/23 Was transferred to [place] and underwent LHC on 04/19/23 with stenting to RCA. LAD and Cx diseaes by DFR did not suggest severe disease. Cardiac catheterization done by Dr. Sanchez on 09/20/23 showed Left main with significant calcified plaque in distal portion with about 50% stenosis Left anterior descending artery : with proximal 80% chronic calcific stenosis but with EMELI 3 flow Left Circumflex: ostial severe stenosis 85% discrete but heavily calcified from dLM plaque extending into ostial LCx, mLCx/dLCx prior stent patent Right coronary artery: prior pRCA stent patent , mRCA focal heavily calcified stenosis with sub total chronic occlusion and minimal L-R collaterals. Arrangements made to transfer to [place] for evaluation for Bypass 2D echo done in February 2023 with normal LV size, EF 70 to 75%, PA pressure 30 to 35 mmHg Hypertension, controlled. Hyperlipidemia, maintained on atorvastatin 40 mg daily Lipids well controlled. History of sick sinus syndrome with intolerance to beta blockers in the past. Asymptomatic at this time, continue to monitor. Benign prostatic hypertrophy. Mild bilateral carotid stenosis. Nonobstructive disease. Last carotid duplex done in January 2023. Patient was seen and evaluated with Marita, examination performed, management plan was discussed, agree with the current scribed note, I made few changes to the note using Italic font Patient was seen at bedside, I reviewed his cath films, discussed the management plan with Dr. Diaz who accepted the patient as a transfer and evaluation with coronary angiogram, possible laser to the right coronary artery and IVUS to the LAD and the circumflex artery and possible high risk intervention versus bypass surgery Arrangement for the transfer were made, patient can go via private vehicle if no ambulance is available Labs and Pending Lab Test: Laboratory Tests 09/20/23 13:50: White Blood Count 7.5, Red Blood Count 4.50, Hemoglobin 14.0, Hematocrit 42, Mean Corpuscular Volume 94, Mean Corpuscular Hemoglobin 31, Mean Corpuscular Hemoglobin Concent 33, Red Cell Distribution Width 13.4, Platelet Count 176, Mean Platelet Volume 11.3, Immature Granulocyte % (Auto) 0, Neutrophils (%) (Auto) 78H, Lymphocytes (%) (Auto) 9L, Monocytes (%) (Auto) 9, Eosinophils (%) (Auto) 3, Basophils (%) (Auto) 1, Neutrophils # (Auto) 5.9, Lymphocytes # (Auto) 0.7L, Monocytes # (Auto) 0.6, Eosinophils # (Auto) 0.2, Basophils # (Auto) 0.1, Immature Granulocyte # (Auto) 0.0, Prothrombin Time 14.1, INR Comment 1.1, Activated Partial Thromboplast Time 28, Sodium Level 140, Potassium Level 4.1, Chloride Level 106, Carbon Dioxide Level 24, Anion Gap 10, Blood Urea Nitrogen 17, Creatinine 0.87, Estimat Glomerular Filtration Rate 86, BUN/Creatinine Ratio 20, Glucose Level 108H, Calcium Level 9.6, Corrected Calcium 9.5, Magnesium Level 2.2, Total Bilirubin 0.8, Aspartate Amino Transf (AST/SGOT) 23, Alanine Aminotransferase (ALT/SGPT) 25, Alkaline Phosphatase 86, Myoglobin 42.0, Troponin I < 0.028, B-Type Natriuretic Peptide 82.1, Total Protein 7.1, Albumin 4.1, Lipase 40 09/21/23 04:25: White Blood Count 4.9, Red Blood Count 4.14L, Hemoglobin 12.7L, Hematocrit 38L, Mean Corpuscular Volume 91, Mean Corpuscular Hemoglobin 31, Mean Corpuscular Hemoglobin Concent 34, Red Cell Distribution Width 13.4, Platelet Count 150, Mean Platelet Volume 11.5, Immature Granulocyte % (Auto) 0, Neutrophils (%) (Auto) 73, Lymphocytes (%) (Auto) 13, Monocytes (%) (Auto) 11, Eosinophils (%) (Auto) 3, Basophils (%) (Auto) 1, Neutrophils # (Auto) 3.6, Lymphocytes # (Auto) 0.6L, Monocytes # (Auto) 0.5, Eosinophils # (Auto) 0.1, Basophils # (Auto) 0.0, Immature Granulocyte # (Auto) 0.0, Sodium Level 140, Potassium Level 3.9, Chloride Level 111H, Carbon Dioxide Level 20L, Anion Gap 9, Blood Urea Nitrogen 14, Creatinine 0.74, Estimat Glomerular Filtration Rate 90, BUN/Creatinine Ratio 19, Glucose Level 103, Calcium Level 8.7, Magnesium Level 2.0, Phosphorus Level 3.0, Triglycerides Level 71, Cholesterol Level 131, LDL Cholesterol Direct 68, VLDL Cholesterol 14, HDL Cholesterol 49 Home Meds Active Reported Aspirin EC (Aspirin) 81 Mg Tablet.dr 81 Mg PO DAILY Lupron Depot (Leuprolide Acetate) 22.5 Mg (3 Month) Soln 22.5 Mg IM EVERY 3 MONTHS Theragran-M Premier 50+ Caplet (Mv-Mn/FA/Coq10/Lycopene/Lutein) 400 Mcg-250 Mcg- 375 Mcg-250 Mcg Tablet 1 Each PO DAILY Vitamin B-12 (Cyanocobalamin (Vitamin B-12)) 1,000 Mcg Capsule 1,000 Mcg PO DAILY Vitamin E (Vitamin E Mixed) 400 Unit Capsule 400 Unit PO DAILY Vitamin D3 (Cholecalciferol (Vitamin D3)) 25 Mcg (1000 Unit) Tablet 25 Mcg PO DAILY Calcium (Calcium Carbonate) 600 Mg Calcium (1500 Mg) Tablet 600 Mg PO DAILY Clopidogrel (Clopidogrel Bisulfate) 75 Mg Tablet 75 Mg PO DAILY Guaifenesin 200 Mg Tablet 200 Mg PO BID Lisinopril 10 Mg Tablet 20 Mg PO DAILY TAKES 2 (10MG) TABS Symbicort 80-4.5 Mcg Inhaler (Budesonide/Formoterol Fumarate) 80 Mcg-4.5 Mcg/Actuation Hfa.aer.ad 2 Puff IH DAILY Montelukast Sodium 10 Mg Tablet 10 Mg PO DAILY Cvs Fish Oil 1,000 mg Softgel ([place]-3/Dha/Epa/Fish Oil) 300 Mg-1,000 Mg Capsule 1 Each PO BID Atorvastatin Calcium 40 Mg Tablet 40 Mg PO HS Assessment/Pt DC Instructions Chest pain CAD HTN HLP Discharge Diet: Cardiac Diet Discharge Physical Examination Allergies: Coded Allergies: No Known Drug Allergies (Unverified , 01/23/23) General Appearance: No Apparent Distress, WD/WN HEENT: Normal ENT Inspection Respiratory: Chest Non Tender, Lungs Clear Cardiovascular: Regular Rate, Rhythm, No Edema, No Gallop, No JVD, No Murmur Gastrointestinal: Non Tender, Soft Extremity: Non Tender, No Calf Tenderness Skin: Normal Color, Warm/Dry Neurologic/Psychiatric: Alert, Oriented x3 Clinical Quality Measures AMI/AHF: ASA po Prior to arrival: Yes MARITA ZELAYA PA-C Sep 21, 2023 10:20 GISSELL DOWNS MD Sep 21, 2023 11:48
[2023-09-21 13:35] VITALS: BP 156/72
== END 2023-09-21 12:45 | disposition short-term general hospital (02) ==
LOC: EDUNIT# 13:44 → ER 13:46 → CATH 16:23 → ICU 18:35 → UNDOADMOB 18:38 → CSD 22:09 → ICU 22:09 → UNDODISOB 09-21 12:45
PROVIDERS: ADMIT Internal Medicine; ATTEND Internal Medicine Interventional Cardiology
DX: I25.110 Atherosclerotic heart disease of native coronary artery with unstable angina pectoris (principal); Z95.5 Presence of coronary angioplasty implant and graft; I10 Essential (primary) hypertension; E78.5 Hyperlipidemia, unspecified; Z79.02 Long term (current) use of antithrombotics/antiplatelets; Z79.899 Other long term (current) drug therapy; Z66 Do not resuscitate
CPT/HCPCS: 71045; 80048; 80053; 80061; 83690; 83735 ×2; 83874; 83880; 84100; 84484; 85025 ×2; 85610; 85730; 93005; 93041; 93454; 99284; C1769 ×2; C1894 ×2; G0378; 36415